=== PATIENT | male | born 1965 | race Caucasian/White ===

== ENCOUNTER 2023-02-10 23:16 | Emergency (ER) | payer MEDICAID ==
[~2023-02-10] VITALS: Wt 95.3 kg
[2023-02-10] MEDS ORDERED: VIBRAMYCIN100 MG PO (23:47)
== END 2023-02-10 23:51 | disposition home or self-care (01) ==
LOC: ED 23:16
DX: S50.812A Abrasion of left forearm, initial encounter (principal); L03.114 Cellulitis of left upper limb; W55.03XA Scratched by cat, initial encounter; Y93.89 Activity, other specified; Y92.009 Unspecified place in unspecified non-institutional (private) residence as the place of occurrence of the external cause; Y99.8 Other external cause status